=== PATIENT | female | born 1950 | race Caucasian/White ===

== ENCOUNTER → 2021-01-10 | Outpatient (CLI) | payer MEDICARE ==
[~2021-01-10] MED LIST: AMARYL 2MG TABLE2 MG PO; ASPIR 8181 MG PO; DIABETA 5 MG TAB5 MG PO; FOLIC ACID1 MG PO; GLUCOPHAGE500 MG PO; IBUPROFEN400 MG PO; IMDUR ER TAB 3030 MG PO; INDAPAMIDE2.5 MG PO; JANUVIA100 MG PO; KLOR-CON M2020 MEQ PO; LEVAQUIN750 MG PO; LIORESAL TAB 1010 MG PO; LIPITOR TAB 2020 MG PO; NORCO 7.5-3251 EACH PO; PERCOCET 10-321 EACH PO; PLAVIX 75 MG TA75 MG PO; PROTONIX40 MG PO; SINGULAIR10 MG PO; SPIRIVA HANDIH18 MCG INH; SPIRIVA RESPIMAT4 GM INH; SYMBICORT 16010.2 GM INH; SYNTHROID100 MCG PO; TENORMIN 50 MG50 MG PO; TESSALON PERLE100 MG PO; VENTOLIN HFA 66.7 GM INH
== END ==
LOC: KOH-I 08:00
DX: R74.8 Abnormal levels of other serum enzymes (principal); K80.20 Calculus of gallbladder without cholecystitis without obstruction; K76.0 Fatty (change of) liver, not elsewhere classified
CPT/HCPCS: 76700

== ENCOUNTER → 2022-02-12 | Outpatient (CLI) | payer MEDICARE | LOC: EXRD 09:03 | DX: K76.0 Fatty (change of) liver, not elsewhere classified (principal); K80.20 Calculus of gallbladder without cholecystitis without obstruction | CPT/HCPCS: 76700 ==